=== PATIENT | male | born 1980 | race Two or more races ===

== ENCOUNTER 2017-03-02 12:01 | Observation (INO) | payer OTHER ==
--- NOTE | ~2017-03-02 | DS ---
Unit #: [id number] #: [id number] Patient: YURI HAMILTON [id number] [address] [address] [id number] MR#: [id number] NAME: YURI HAMILTON ROOM: 461 Age: 37 Sex: M Admission Date: 03/02/2017 : 1980 Discharge Date: 03/04/2017 Attending Physician: Uche Aguiar Jr., M.D. Primary Care Physician: No Primary Care Physician DISCHARGE SUMMARY DISCHARGE DIAGNOSIS Retrocecal gangrenous appendicitis. OPERATIVE PROCEDURE Laparoscopic appendectomy. DISCHARGE MEDICATIONS 1. Augmentin 875 mg one p.o. b.i.d. 2. Lortab 7.5 one p.o. q.4 hours p.r.n. pain. HISTORY OF PRESENT ILLNESS AND HOSPITAL COURSE This is a 37-year-old Indonesian-speaking white male with right lower quadrant pain and CT scan consistent with appendicitis. He was taken to surgery. Laparoscopic appendectomy was performed for retrocecal gangrenous appendicitis. He was admitted and had 36 hours of intravenous antibiotics. His diet was slowly advanced over the course of two days. Presently at this time, he is ready to be discharged. Come back and see us in the office for followup evaluation in five to seven days. He is to do no heavy lifting or strenuous activity. He is discharged on a regular diet. Dictated by... Rolly Red/adams TD: 03/05/2017 09:05 JOB #: [id number] DISCHARGE SUMMARY Page 1 of 1 X Nitin West MD X DISCHARGE SUMMARY
--- NOTE | ~2017-03-02 | CT4 ---
[facility] A Service of [facility] RADIOLOGY TEXT RESULTS PATIENT: YURI HAMILTON LOCATION: Psychiatric 461- : 78 UNIT #: [id number] AGE: [address]: Uche Aguiar MD SEX: M ORDER DR: [id number] [facility] [address] [place], [place] [address] [id number] E MR#: [id number] Acc #: [id number] NAME: YURI HAMILTON : 1980 SEX: M STUDY DATE/TIME: 03/02/2017 13:16 UNIT: REBEKAH ROOM: STUDY DESCRIPTION: CT Abd and Pelv Wo Cont Attending Physician: Carmen Christopher M.D. Ordering Physician: Carmen Christopher M.D. Primary Care Physician: Primary Care Physician No MEDICAL IMAGING REPORT This report is preliminary unless electronic signature is present EXAM CT abdomen and pelvis, 03/02/2017 HISTORY Right upper quadrant pain, nausea and vomiting today. This CT exam was performed with one or more of the following radiation dose reduction techniques: automatic exposure control, adjustment of mA and/or kV according to patient size, and iterative reconstruction. FINDINGS CT abdomen and pelvis performed without administration of oral or intravenous contrast. No comparisons. Some mild pleural thickening along the lateral aspect of the right major fissure. No evidence of acute pulmonary disease or suspicious nodule at the lung bases. The inferior heart and pericardium are unremarkable. Liver, gallbladder, spleen, pancreas, adrenal glands, kidneys unremarkable. No renal calculi or obstruction. Bilateral ureters unremarkable. CT PELVIS: No inguinal adenopathy. Urinary bladder unremarkable. No pelvic or retroperitoneal adenopathy. Distal esophagus, stomach, small bowel notable for some fecalized material in the distal ileum which is normal in caliber and otherwise unremarkable. This may reflect delay in small bowel transit or perhaps minimal distal ileal ileus secondary to nearby inflamed appendix. The patient has a retrocecal appendix. The cecum is in the lateral mid abdomen and the retrocecal appendix extends cephalad to the inferior margin of the right hepatic lobe. It is abnormally distended measuring up to about 16 cm in diameter. There is an appendicolith proximally. There is periappendiceal fat stranding and haziness but no free air, abscess or drainable fluid collection. The tip of the appendix does abut the right posterolateral ascending colon. The remainder of colon shows no additional acute abnormalities. There is a [facility] A Service of [facility] RADIOLOGY TEXT RESULTS PATIENT: YURI HAMILTON LOCATION: Psychiatric 461-01 : 78 UNIT #: [id number] AGE: [address]: Uche Aguiar MD SEX: M ORDER DR: moderate stool burden in the ascending colon, likely physiologic. Unopacified vascular structures unremarkable. Bony structures show no acute abnormality. IMPRESSION 1. Acute appendicitis. The patient has a retrocecal appendix. Cecum is positioned in the lateral aspect of the right mid abdomen and the inflamed appendix extends cephalad along the posterior aspect of the ascending colon to the inferior margin of the right hepatic lobe. There is an appendicolith proximally. There is periappendiceal stranding and inflammatory haziness but there is no free air, fluid collection or abscess at this time. The tip of the inflamed appendix does abut the right posterolateral aspect of the ascending colon. 2. Some fecalized material in normal caliber distal ileum likely reflecting delay in small bowel transit or perhaps very mild distal small bowel ileus secondary to the nearby inflamed appendix. 3. The gallbladder, pancreas, kidneys unremarkable. 4. Not mentioned above, there is some high-density material in normal-caliber distal small bowel which likely reflects the patient's ingestion history. Correlate clinically. 5. Also not mentioned above, there is a punctate calcification in the wall of the urinary bladder dome. Etiology and significance unclear. No associated soft tissue abnormality. 6. See remainder of incidental findings in body of report above. Dictated by... Dariusz Gilbert M.D. THIS IS AN ELECTRONICALLY VERIFIED REPORT Dariusz Gilbert M.D. at 03/03/2017 12:11 PM Kya TD: 03/02/2017 20:18 JOB #: [id number] MEDICAL IMAGING REPORT Page 1 of 1 COPY
--- NOTE | ~2017-03-02 | HP ---
Unit #: [id number] #: [id number] Patient: YURI HAMILTON [id number] [address] [address] [id number] E MR#: [id number] NAME: YURI HAMILTON ROOM: Age: 37 Sex: M Admission Date: 03/02/2017 : 1980 Attending Physician: Carmen Christopher M.D. Primary Care Physician: No Primary Care Physician HISTORY AND PHYSICAL CHIEF COMPLAINT Right lower quadrant abdominal pain with nausea and vomiting. HISTORY OF PRESENT ILLNESS The patient is a 37-year-old male who was in normal good health up until this morning when he developed some right lower quadrant abdominal pain and this initially was periumbilical and now has shifted more to the right lower quadrant. He had some associated nausea and vomiting without fevers or chills. He has had no recent urinary tract symptoms and no URI. PAST MEDICAL HISTORY SERIOUS ILLNESSES: None. SURGERY: None in the past. MEDICATIONS None chronically. ALLERGIES None known. TRANSFUSIONS None in the past. FAMILY HISTORY Noncontributory. SOCIAL HISTORY The patient is single, smokes approximately half a pack of cigarettes per day, is a nondrinker. He has a normal good appetite, no recent weight change. IMMUNIZATIONS Up to date. REVIEW OF SYSTEMS A 10-system review has been performed which is non-remarkable except as noted in the history of present illness. This was done through an full time staff interpreter. PHYSICAL EXAMINATION VITAL SIGNS: Temperature 97.8. Pulse 60. Respirations 16. Blood Unit #: [id number] #: [id number] Patient: YURI HAMILTON pressure 132/66. GENERAL DESCRIPTION: The patient is a well-developed, well-nourished, 37-year-old male in no acute distress. HEENT: Non-remarkable. NECK: Supple. CHEST: Equal bilateral expansion with bilateral equal breath sounds. The lungs are clear bilaterally. HEART: Regular rhythm, without murmurs or gallops. There is no cardiomegaly clinically. ABDOMEN: Soft. Moderately tender in the right lower quadrant without masses or organomegaly. There is no gross abdominal distention. There is some guarding, without rebound. Active bowel sounds present. No evidence of ascites or hernias. EXTREMITIES: There is a full range of motion without limitation. There is no peripheral edema. BACK EXAM: No CVA tenderness. NEUROLOGICAL: Grossly intact. DIAGNOSTIC STUDIES IMAGING: CT scan reveals evidence of probable acute appendicitis without perforation. LABORATORY: White blood cell count is 11,000. IMPRESSION The patient most likely has early acute appendicitis. PLAN We will go ahead with a diagnostic laparoscopy, laparoscopic appendectomy. The patient understands the procedure including the risk including that of infection, abscess formation, staple line leak and bleeding and consents. Dictated by Uche Aguiar Jr., M.D. TATIANNA/mignon TD: 03/02/2017 16:34 JOB #: [id number] HISTORY AND PHYSICAL Page 1 of 1 X Uche Aguiar MD X HISTORY AND PHYSICAL
--- NOTE | ~2017-03-02 | OR ---
Unit #: [id number] #: [id number] Patient: YURI HAMILTON [id number] [address] [place], [place] [address] [id number] I MR#: [id number] NAME: YURI HAMILTON ROOM: 461 Date of Procedure: 03/02/2017 Admission Date: 03/02/2017 Surgeon: Uche Aguiar Jr., M.D. : 1980 Attending Physician: Uche Aguiar Jr., M.D. Primary Care Physician: Primary Care Physician No OPERATIVE REPORT INDICATIONS FOR PROCEDURE The patient is a 37-year-old male, who presented through the emergency room with classic signs and symptoms for acute appendicitis. CT scan revealed evidence of a nonperforated appendix likely with retrocecal appendix and was felt the patient needed laparoscopic appendectomy. He is brought to the operating room at this time for this procedure. He understands the procedure including the risks, including that of bleeding, intra-abdominal organ injury, abscess formation, infection, and consents. PREOPERATIVE DIAGNOSIS Acute appendicitis. POSTOPERATIVE DIAGNOSIS AND FINDINGS Acute nonperforated appendicitis with a dilated gangrenous tip extending up under the gallbladder. ANESTHESIA General with endotracheal intubation and 0.5% Marcaine with epinephrine locally. PROCEDURE PERFORMED Laparoscopic lysis of adhesions requiring 15 minutes with laparoscopic appendectomy. DESCRIPTION OF PROCEDURE The patient was positioned in the supine position. After being anesthetized and intubated, he was prepped and draped in routine fashion for laparoscopic appendectomy. A small infraumbilical incision was made approximately a 1 cm in length. This was carried down to the fascia. The fascia in the umbilicus was lifted with a towel clip, and a Veress needle introduced in the abdomen. The abdomen was then inflated with CO2 gas. A 5-mm port was introduced into the abdomen followed by the camera. There was no evidence of any injury related to introduction of the port of the Veress needle. Brief intra-abdominal exploration was carried out. The patient was noted to have a retrocecal gangrenous appendix with no obvious perforation. The rest of the exam was not remarkable. A 5-mm port was placed senior care between the umbilicus and suprapubic area and a 12-mm port just to the right of the upper midline. The cecum was retracted to the left and multiple adhesions were then freed up including Seymour veil around the area of the appendix with hook scissors and blunt dissection. This required approximately 15 minutes. After mobilizing the appendix, the base was visualized and a window was created at the base and using the Unit #: [id number] #: [id number] Patient: YURI HAMILTON linear 3.5 mm jose roberto with stapling device, the base was stapled and transected. The mesoappendix was then freed up from its adhesions and using 3 separate vascular loads, it was then hemostatically stapled and divided. The appendix was placed in EndoCatch bag and brought out through the larger port site and there was foul-smelling from the appendix noted when it was removed with the bag. The port was replaced. The right lower quadrant was checked. There was no evidence of any bleeding in the area where the staple lines were. A small amount of blood was removed with several sponges packed in and taken directly out. After sponge count was correct x3, the CO2 was expressed from the abdomen. The fascia in the larger port site was approximated with the neoClose technique and the wounds were irrigated and after hemostasis achieved with Bovie cautery, they were injected with 0.5% Marcaine with epinephrine locally and the skin edges approximated with stainless-steel skin clips and skin stapling device. Sterile dressings were applied externally. Estimated blood loss less than 50 mL. The patient received less than 1500 mL crystalloid solution during the procedure. Sponges and instruments counts were correct x3. No drains used. No complications. The patient was taken to the recovery room with stable vital signs in satisfactory condition. Dictated by... Uche Aguiar Jr., M.D. JMB/vladimir TD: 03/02/2017 19:04 JOB #: [id number] OPERATIVE REPORT Page 1 of 1 X Uche Aguiar MD X PROCEDURE OPERATIVE NOTE
[2017-03-02 12:51] LABS: URINE SOURCE CLEAN CATCH
[2017-03-02 12:54] LABS: BASOPHIL% 0.2 % (0-2.5); EOSINOPHIL% 0.1 % (0.0-7.0); HEMATOCRIT 47.9 % (38.0-50.0); HEMOGLOBIN 16.2 gm/dL (13.0-16.0); LYMPHOCYTE# 0.6 X10e3 (1.0-3.5); LYMPHOCYTE% 4.7 % (17.0-45.0); MEAN CELL VOLUME 88.2 FL (83-96); MEAN CORPUSCULAR HEMOGLOBIN 29.8 PG (28-34); MEAN CORPUSCULAR HGB CONC 33.8 g/dL (30-36); MEAN PLATELET VOLUME 7.8 FL (6.5-11.5); MONOCYTE# 0.4 X10e3 (0-1.0); NEUTROPHIL# 10.8 X10e3 (1.5-7.1); PLATELET COUNT 255 X10e3 (140-420); RED BLOOD COUNT 5.43 X10e (3.90-5.60); RED CELL DISTRIBUTION WIDTH 12.9 % (11.0-15.5); WHITE BLOOD COUNT 11.7 X10e3 (4.0-10.5)
[2017-03-02 12:57] LABS: DIFF IND NO
[2017-03-02 13:00] LABS: URINE APPEARANCE CLEAR; URINE BILIRUBIN NEG (NEG); URINE BLOOD 2+ (NEG); URINE COLOR YELLOW; URINE GLUCOSE NEG (NEG); URINE KETONE NEG (NEG); URINE LEUKOCYTE ESTERASE NEG (NEG); URINE NITRATE NEG (NEG); URINE PH 6.5 (5-8); URINE PROTEIN 3+ (NEG); URINE SPECIFIC GRAVITY 1.027 (1.003-1.035)
[2017-03-02 13:02] LABS: U HYALINE CASTS AUWI 0-2 /[LPF]; URINE BACTERIA AUWI NEG (NEGATIVE); URINE SQUAMOUS EPITHELIAL CELL NONE SEEN /[HPF]; UWBCS1 AUWI 0-2 (0-5)
[2017-03-02 13:03] LABS: CULTURE INDICATED? NO
[2017-03-02 13:32] LABS: ALBUMIN SERUM 4.3 g/dL (3.5-5.0); BILIRUBIN, DIRECT 0.1 mg/dL (0.0-0.2); BILIRUBIN,INDIRECT 0.1 mg/dL (0.0-0.9); BILIRUBIN,TOTAL 0.2 mg/dL (0.2-2.0); BUN/CREATININE RATIO 21.42; CREATININE SERUM 0.7 mg/dL (0.6-1.4); GLOM FILT RATE Estimated 119.8 mL/min (>60); POTASSIUM 3.9 mmol/L (3.5-5.1); PROTEIN TOTAL SERUM 7.8 g/dL (6.0-8.3)
[2017-03-02] MEDS ORDERED: NO MEDICATIONS (21:36)
[2017-03-03 03:21] LABS: BASOPHIL% 0.2 % (0-2.5); HEMATOCRIT 44.7 % (38.0-50.0); LYMPHOCYTE# 0.8 X10e3 (1.0-3.5); LYMPHOCYTE% 6.5 % (17.0-45.0); MEAN CELL VOLUME 88.3 FL (83-96); MEAN CORPUSCULAR HEMOGLOBIN 29.6 PG (28-34); MEAN CORPUSCULAR HGB CONC 33.6 g/dL (30-36); MEAN PLATELET VOLUME 7.9 FL (6.5-11.5); MONOCYTE# 0.7 X10e3 (0-1.0); NEUTROPHIL# 11.6 X10e3 (1.5-7.1); NEUTROPHIL% 88.3 % (40-75); PLATELET COUNT 249 X10e3 (140-420); RED BLOOD COUNT 5.06 X10e (3.90-5.60); RED CELL DISTRIBUTION WIDTH 12.9 % (11.0-15.5); WHITE BLOOD COUNT 13.1 X10e3 (4.0-10.5)
[2017-03-03 03:24] LABS: DIFF IND NO
[2017-03-03 08:46] LABS: HEMATOCRIT 45.4 % (38.0-50.0); HEMOGLOBIN 15.3 gm/dL (13.0-16.0); MEAN CORPUSCULAR HGB CONC 33.7 g/dL (30-36); RED BLOOD COUNT 5.1 X10e (3.90-5.60); RED CELL DISTRIBUTION WIDTH 12.9 % (11.0-15.5); WHITE BLOOD COUNT 10.4 X10e3 (4.0-10.5)
[2017-03-04 04:02] LABS: BASOPHIL% 0.2 % (0-2.5); EOSINOPHIL# 0.1 X10e3 (0-0.7); EOSINOPHIL% 0.9 % (0.0-7.0); HEMATOCRIT 43.4 % (38.0-50.0); HEMOGLOBIN 14.7 gm/dL (13.0-16.0); LYMPHOCYTE# 0.9 X10e3 (1.0-3.5); MEAN CELL VOLUME 88.1 FL (83-96); MEAN CORPUSCULAR HEMOGLOBIN 29.8 PG (28-34); MEAN CORPUSCULAR HGB CONC 33.9 g/dL (30-36); MEAN PLATELET VOLUME 8.2 FL (6.5-11.5); MONOCYTE# 0.6 X10e3 (0-1.0); MONOCYTE% 8.2 % (3.0-12.0); NEUTROPHIL# 6.2 X10e3 (1.5-7.1); NEUTROPHIL% 79.7 % (40-75); PLATELET COUNT 228 X10e3 (140-420); RED BLOOD COUNT 4.93 X10e (3.90-5.60); WHITE BLOOD COUNT 7.8 X10e3 (4.0-10.5)
[2017-03-04 04:07] LABS: DIFF IND NO
[2017-03-04 04:26] LABS: BUN/CREATININE RATIO 14.28; CALCIUM SERUM 8.9 mg/dL (8.4-10.2); CREATININE SERUM 0.7 mg/dL (0.6-1.4); GLOM FILT RATE Estimated 119.8 mL/min (>60); POTASSIUM 3.5 mmol/L (3.5-5.1)
[2017-03-04] MEDS ORDERED: LORTAB 7.5-3251 EACH PO (12:04)
[2017-03-04] MEDS ORDERED: AUGMENTIN PO (12:04)
== END 2017-03-04 14:00 | disposition home or self-care (01) | DRG 343 ==
LOC: CED 12:01 → C4C 15:10 → CEDOF 15:10 → CED 15:25 → C4C 15:25 → CEDOF 15:25 → C4C 15:25 → CEDOF 21:12 → C4C 21:12
PROVIDERS: Emergency Medicine; Surgery
PROC: 0DTJ4ZZ Resection of Appendix, Percutaneous Endoscopic Approach (ICD-10-PCS; principal; 2017-03-02 16:30)
DX: K35.80 Unspecified acute appendicitis (principal); K66.0 Peritoneal adhesions (postprocedural) (postinfection); N32.89 Other specified disorders of bladder; F17.210 Nicotine dependence, cigarettes, uncomplicated; Z79.899 Other long term (current) drug therapy
CPT/HCPCS: 36415; 74176; 80048; 80076; 81003; 85025; 85027; 88304; 96361; 96365; 96375; 96376; 99285; G0378; J0330; J2250; J2270; J2405; J2543; J2710; J3010